=== PATIENT | female | born 1985 | race Caucasian/White ===

== ENCOUNTER 2016-08-18 15:12 | Emergency (ER) | payer MEDICAID, OTHER ==
[~2016-08-18] VITALS: Ht 157.5 cm; Wt 94.8 kg
[2016-08-18] MEDS ORDERED: HYDROcodone/APAP 7.5 MG/325 MG (LORTAB, LORCET PLUS) TABLET PO STA (16:03)
[2016-08-18] MEDS ORDERED: CYCL10TA9 PO (16:09)
[2016-08-18] MEDS ORDERED: PRD20T PO (16:09)
[2016-08-18] MEDS ORDERED: HYDR-3816 PO ×2 (16:09→16:16)
--- NOTE | 2016-08-18 16:10 | ED Back Pain ---
General Chief Complaint: Back Problems Stated Complaint: BACK PAIN Nursing Triage Note: c/o low back pain. Denies acute trauma. Onset 1 week ago. Nursing Sepsis Screen: No Definite Risk Source of Information: Patient Exam Limitations: No Limitations History of Present Illness Time Seen by Provider: 15:55 Initial Comments Here with low back pain that has been going on for the last week. States that it is in the left side now and radiates down the left leg. She did haven't previously in the right side radiating down the right leg. Denies any specific injury. Denies bowel or bladder incontinence. Denies numbness between the legs or weakness. Location: Lumbar Spine, Paraspinous Muscles Timing/Duration: 1 Week Severity: Moderate Pain/Injury Location: Back Radiation: Buttocks, Upper Legs Method of Injury: Unknown Modifying Factors: Worse With Movement Associated Symptoms: muscle spasms, No fever, No weakness, No numbness in legs/ feet, No tingling in legs/feet, No sensory/motor loss, lower back pain, No loss of bladder control, No loss of bowel control Allergies and Home Medications Allergies Coded Allergies: Penicillins (Verified Allergy, Unknown, 08/18/16) tramadol (Verified Allergy, Unknown, 08/18/16) Constitutional: see HPI Respiratory: no symptoms reported Cardiovascular: no symptoms reported Gastrointestinal: no symptoms reported Genitourinary: no symptoms reported Musculoskeletal: see HPI, back pain, muscle pain Skin: no symptoms reported Psychiatric/Neurological: No Symptoms Reported Past Spvtjrl-Xjxebw-Thqznh Hx Patient Social History Alcohol Use: Denies Use Recreational Drug Use: No Smoking Status: Current Everyday Smoker Recent Foreign Travel: No Contact w/Someone Who Travel: No Recent Infectious Disease Expo: No Recent Hopitalizations: No Surgeries HX Surgeries: No Respiratory Hx Respiratory Disorders: No Cardiovascular Hx Cardiac Disorders: No Neurological Hx Neurological Disorders: No Reproductive System : No Hx Reproductive Disorders: No HIV/AIDS: No Genitourinary Hx Genitourinary Disorders: No Gastrointestinal Hx Gastrointestinal Disorders: No Musculoskeletal Hx Musculoskeletal Disorders: No Endocrine Hx Endocrine Disorders: No HEENT HX ENT Disorders: No Cancer Hx Cancer: No Psychosocial Hx Psychiatric Problems: No Integumentary HX Skin/Integumentary Disorder: No Blood Transfusions Hx Blood Disorders: No Reviewed Nursing Assessment Reviewed/Agree w Nursing PMH: Yes Family Medical History Significant Family History: No Pertinent Family Hx Physical Exam Vital Signs Vital Sign - Last 12Hours 4/10/17 15:43 Temp 98.6 Pulse 70 Resp 16 B/P (MAP) 124/87 Pulse Ox 98 O2 Delivery Room Air Capillary Refill : Less Than 3 Seconds General Appearance: No Apparent Distress, WD/WN Cardiovascular: Regular Rate, Rhythm, No Murmur Respiratory: Lungs Clear, Normal Breath Sounds Gastrointestinal: Non Tender, Soft Back: Muscle Spasm (mild left low back), No Vertebral Tenderness, Other (pain with straight leg raise bilateral) Extremity: Non Tender, No Calf Tenderness Neurologic/Psychiatric: Alert, Oriented x3, No Motor/Sensory Deficits Skin: Normal Color, Warm/Dry Progress/Results/Core Measures Results/Orders Vital Signs/I&O Vital Sign - Last 12Hours 08/18/16 15:43 Temp 98.6 Pulse 70 Resp 16 B/P (MAP) 124/87 Pulse Ox 98 O2 Delivery Room Air Blood Pressure Mean: 99 Progress Note : Progress Note Seen and evaluated. Hydrocodone 7.5 mg one tab by mouth. I did discuss with the patient about stepwise evaluation. She has no signs of significant back injury or spinal cord concerns at this time. Likely sciatica. Discharge home with return precautions. Patient verbalize understanding of instructions and agreement with plan. Departure Impression Impression: Primary Impression: Lumbar radiculopathy Disposition: 01 HOME, SELF-CARE Condition: Stable Departure-Patient Inst. Decision time for Depature: 16:08 Referrals: NO,LOCAL PHYSICIAN (PCP/Family) Primary Care Physician Patient Instructions: Radiculopathy (DC), Low Back Pain (DC) Add. Discharge Instructions: All discharge instructions reviewed with patient and/or family. Voiced understanding. Take medications as directed. Follow-up with your doctor this week for recheck and further evaluation. We will all hold on imaging at this point. Return if you have weakness, numbness between your legs, problems going to the bathroom or walking or other concerns as needed. You may take ibuprofen 800 mg every 8 hours as needed for pain. You may take Tylenol 1000 mg every 8 hours as needed for pain if you are not taking a hydrocodone-containing compound as both have acetaminophen (Tylenol) in it. Scripts Prednisone (Prednisone) 20 Mg Tab 40 MG PO DAILY, #14 TAB 0 Refills Prov: BEKAH GA MD 08/18/16 Hydrocodone/Acetaminophen (Hydrocodon-Acetaminoph 7.5-325) 1 Each Tablet 1 EACH PO Q6H, #14 TAB 0 Refills Prov: BEKAH GA MD 08/18/16 Cyclobenzaprine HCl (Cyclobenzaprine HCl) 10 Mg Tablet 10 MG PO Q8H Y for SPASMS, #15 TAB 0 Refills Prov: BEKAH GA MD 08/18/16 BEKAH GA MD Aug 18, 2016 16:10
[2016-08-18 16:20] VITALS: BP 122/80
== END 2016-08-18 16:20 | disposition home or self-care (01) ==
LOC: ER 15:15
DX: M54.16 Radiculopathy, lumbar region (principal); F17.210 Nicotine dependence, cigarettes, uncomplicated
CPT/HCPCS: 99281

== ENCOUNTER 2018-05-13 20:26 | Inpatient (IN) | payer MEDICAID | END 2018-05-15 13:15 | disposition home or self-care (01) | LOC: WSo 20:26 → LDRP 20:27 → WSo 20:39 → LDRP 20:39 ==

== ENCOUNTER 2018-06-18 14:51 | Emergency (ER) | payer MEDICAID ==
[~2018-06-18] VITALS: Ht 154.9 cm; Wt 81.2 kg
[~2018-06-18 14:51] MED LIST: CYCL10TA9 PO; HYDR-34 PO; PRD20T PO
[2018-06-18] MEDS ORDERED: fentaNYL INJECTION 100 MCG/2 ML AMP IVP ONE (16:00)
[2018-06-18 16:33] LABS: BASOPHILS % (AUTO) 0 % (0-10); EOSINOPHILS # (AUTO) 0.1 10^3/uL (0.0-0.3); EOSINOPHILS % (AUTO) 1 % (0-10); HEMATOCRIT 41 % (35-52); HEMOGLOBIN 13.5 G/DL (11.5-16.0); LYMPHOCYTES # (AUTO) 3.2 X 10^3 (1.0-4.0); LYMPHOCYTES % (AUTO) 34 % (12-44); MEAN CORPUSCULAR HEMOGLOBIN 30 PG (25-34); MEAN CORPUSCULAR HGB CONC 33 G/DL (32-36); MEAN CORPUSCULAR VOLUME 91 FL (80-99); MEAN PLATELET VOLUME 12.2 FL (7.4-10.4); MONOCYTES # (AUTO) 0.7 X 10^3 (0.0-1.0); MONOCYTES % (AUTO) 8 % (0-12); NEUTROPHILS # (AUTO) 5.3 X 10^3 (1.8-7.8); NEUTROPHILS % (AUTO) 57 % (42-75); PLATELET COUNT 189 10^3/uL (130-400); WHITE BLOOD COUNT 9.4 10^3/uL (4.3-11.0)
[2018-06-18 17:00] LABS: ALANINE AMINOTRANSFERASE 19 U/L (0-55); ALBUMIN 4.1 GM/DL (3.2-4.5); ALKALINE PHOSPHATASE 87 U/L (40-136); BILIRUBIN,TOTAL 0.3 MG/DL (0.1-1.0); BUN/CREATININE RATIO 13; CALCIUM 9.2 MG/DL (8.5-10.1); CARBON DIOXIDE 21 MMOL/L (21-32); CHLORIDE 109 MMOL/L (98-107); CREATININE SERUM 0.72 MG/DL (0.60-1.30); GFR ESTIMATED > 60; GLUCOSE 83 MG/DL (70-105); SODIUM 140 MMOL/L (135-145); TOTAL PROTEIN 7.1 GM/DL (6.4-8.2)
--- NOTE | 2018-06-18 17:26 | ED EENT ---
History of Present Illness General Chief Complaint: Dental Problems/Pain Stated Complaint: TOOTH ABSCESS Nursing Triage Note: Ambulatory to triage. Pt c/o R sided lower dental pain that began Thursday. Pt reports trying to get into [facility] dental and was not able to get an appt. Pt reports tooth is broken and "abscess broke open last night.' Pt is visibly swollen and pt reports R sided facial pain. Source: patient Exam Limitations: no limitations History of Present Illness Date Seen by Provider: Jun 18, 2018 Time Seen by Provider: 15:54 Initial Comments 32-year-old female who presents to the emergency room with complaints of right- sided lower dental pain that started on Thursday. She reports trying to go to [facility] but was not able to get an appointment. She reports that the abscess broke open in the middle of the night and was draining. But reports that this morning she woke up with right-sided lower facial swelling and pain. Timing/Duration: this morning Location: dental Associated Symptoms: facial pain/swelling, tooth pain Allergies and Home Medications Allergies Coded Allergies: Penicillins (Verified Allergy, Unknown, 08/18/16) tramadol (Verified Allergy, Unknown, 08/18/16) Home Medications No Active Prescriptions or Reported Meds Past Zpwnqhv-Axyxvc-Rzoqsd Hx Patient Social History Alcohol Use: Denies Use Recreational Drug Use: No Smoking Status: Current Everyday Smoker Type Used: Cigarettes Recent Foreign Travel: No Contact w/Someone Who Travel: No Recent Infectious Disease Expo: No Recent Hopitalizations: No Physical Abuse: No Sexual Abuse: No Immunizations Up To Date PED Vaccines UTD: Yes Date of Influenza Vaccine: Mar 10, 2018 Past Medical History Surgeries: No Respiratory: No Cardiac: No Neurological: No Reproductive Disorders: No HIV/AIDS: No Genitourinary: No Gastrointestinal: No Musculoskeletal: No Endocrine: No HEENT: No Cancer: No Psychosocial: No Integumentary: No Blood Disorders: No Adverse Reaction/Blood Tranf: No Family Medical History Patient reports no known family medical history. No Pertinent Family Hx Physical Exam Vital Signs Vital Signs - First Documented 06/18/18 15:39 Temp 97.4 Pulse 79 Resp 15 B/P (MAP) 118/77 (91) Pulse Ox 97 O2 Delivery Room Air Height, Weight, BMI Height: 5'1.00" Weight: 179lbs. 0.0oz. [id number]; 39.5 BMI Method:Stated Progress/Results/Core Measures Results/Orders Lab Results Laboratory Tests Test 06/18/18 16:20 Range/Units White Blood Count 9.4 4.3-11.0 10^3/uL Red Blood Count 4.49 4.35-5.85 10^6/uL Hemoglobin 13.5 11.5-16.0 G/DL Hematocrit 41 35-52 % Mean Corpuscular Volume 91 80-99 FL Mean Corpuscular Hemoglobin 30 25-34 PG Mean Corpuscular Hemoglobin Concent 33 32-36 G/DL Red Cell Distribution Width 14.0 10.0-14.5 % Platelet Count 189 130-400 10^3/uL Mean Platelet Volume 12.2 H 7.4-10.4 FL Neutrophils (%) (Auto) 57 42-75 % Lymphocytes (%) (Auto) 34 12-44 % Monocytes (%) (Auto) 8 0-12 % Eosinophils (%) (Auto) 1 0-10 % Basophils (%) (Auto) 0 0-10 % Neutrophils # (Auto) 5.3 1.8-7.8 X 10^3 Lymphocytes # (Auto) 3.2 1.0-4.0 X 10^3 Monocytes # (Auto) 0.7 0.0-1.0 X 10^3 Eosinophils # (Auto) 0.1 0.0-0.3 10^3/uL Basophils # (Auto) 0.0 0.0-0.1 10^3/uL Sodium Level 140 135-145 MMOL/L Potassium Level 4.0 3.6-5.0 MMOL/L Chloride Level 109 H 98-107 MMOL/L Carbon Dioxide Level 21 21-32 MMOL/L Anion Gap 10 5-14 MMOL/L Blood Urea Nitrogen 9 7-18 MG/DL Creatinine 0.72 0.60-1.30 MG/DL Estimat Glomerular Filtration Rate > 60 BUN/Creatinine Ratio 13 Glucose Level 83 70-105 MG/DL Calcium Level 9.2 8.5-10.1 MG/DL Corrected Calcium 9.1 8.5-10.1 MG/DL Total Bilirubin 0.3 0.1-1.0 MG/DL Aspartate Amino Transf (AST/SGOT) 19 5-34 U/L Alanine Aminotransferase (ALT/SGPT) 19 0-55 U/L Alkaline Phosphatase 87 40-136 U/L Total Protein 7.1 6.4-8.2 GM/DL Albumin 4.1 3.2-4.5 GM/DL Serum Test, Qualitative NEGATIVE NEGATIVE My Orders Orders - EMY VEE Comprehensive Metabolic Panel (06/18/18 15:53) Saline Lock/Iv-Start (06/18/18 15:53) Cbc With Automated Diff (06/18/18 15:53) Ct Maxillofacial W (06/18/18 15:53) Fentanyl Injection (Sublimaze Injection (06/18/18 16:00) Hcg,Qualitative Serum (06/18/18 16:29) Iohexol Injection (Omnipaque 350 Mg/Ml 1 (06/18/18 17:45) Contrast Received (Contrast Received) (06/18/18 17:45) Sodium Chloride Flush (Catheter Flush Sy (06/18/18 17:45) Ns (Ivpb) (Sodium Chloride 0.9% Ivpb Bag (06/18/18 17:45) Clindamycin Capsule (Cleocin Capsule) (06/18/18 18:30) Hydrocodone/Apap 7.5/325 Tab (Lortab 7. (06/18/18 18:30) Medications Given in ED Current Medications Medications Dose Ordered Sig/Speedy Route Start Time Stop Time Status Last Admin Dose Admin Fentanyl Citrate 50 mcg ONCE ONCE IVP 06/18/18 16:00 06/18/18 16:01 DC 06/18/18 16:28 50 MCG Iohexol 100 ml ONCE ONCE IV 06/18/18 17:45 06/18/18 17:46 DC 06/18/18 17:38 100 ML Sodium Chloride 10 ml NEEDED PRN IV 06/18/18 17:45 06/18/18 17:38 10 ML Sodium Chloride 100 ml ONCE ONCE IV 06/18/18 17:45 06/18/18 17:46 DC 06/18/18 17:38 80 ML Vital Signs/I&O 06/18/18 15:39 Temp 97.4 Pulse 79 Resp 15 B/P (MAP) 118/77 (91) Pulse Ox 97 O2 Delivery Room Air Blood Pressure Mean: 91 Departure Impression Primary Impression: Dental abscess Disposition: 01 HOME, SELF-CARE Condition: Stable/Unchanged Departure-Patient Inst. Decision time for Depature: 18:19 Referrals: NO,LOCAL PHYSICIAN (PCP/Family) Primary Care Physician Patient Instructions: Tooth Abscess (DC) Add. Discharge Instructions: Take medications as directed. Ibuprofen and Tylenol as directed by the bottle for pain relief. Pain medication for pain unrelieved by Tylenol and ibuprofen. Follow-up with your primary care provider and your dentist within 1 for recheck. Return back to the emergency room for worsening symptoms, worsening swelling, fevers, or any other concerns as needed. All discharge instructions reviewed with patient and/or family. Voiced understanding. Scripts Clindamycin HCl (Clindamycin HCl) 300 Mg Capsule 300 MG PO Q6H for 7 Days, #28 CAP Prov: EMY VEE 06/18/18 Hydrocodone Bit/Acetaminophen (Hydrocodone/Acetaminophen 5/325mg Tablet) 1 Tab Tab 1-2 EACH PO Q6H PRN for PAIN-MODERATE MDD 10, #14 TAB Prov: EMY VEE 06/18/18 EMY VEE Jun 18, 2018 17:26
[2018-06-18] MEDS ORDERED: NS 100 ML (IVPB) BAG IV ONE (17:45)
[2018-06-18] MEDS ORDERED: CATHETER FLUSH 10 ML SYR IV PRN (17:45)
[2018-06-18] MEDS ORDERED: IOHEXOL 350 MG/ML 100 ML (OMNIPAQUE 350) VIAL IV ONE (17:45)
[2018-06-18] MEDS ORDERED: RECEIVED CONTRAST (Hold Metformin) IV SCH (17:45)
--- NOTE | 2018-06-18 17:51 | Diagnostic Imaging Report ---
PROCEDURE: CT maxillofacial with contrast. TECHNIQUE: After intravenous administration of contrast, axial images were obtained through the face and reformatted into coronal and sagittal planes. INDICATION: Left-sided dental pain and swelling. COMPARISON: No comparison is available. FINDINGS: There is diffuse abnormal induration demonstrated within the subcutaneous fat about the mandible bilaterally appearing more extensive on the right. There are numerous bilateral maxillary and mandibular dental caries, which suggest an odontogenic source of this apparent soft tissue infection. There are periapical lucencies about the right second and third mandibular molars, which may reflect a periapical abscess. Each of these teeth demonstrate large dental caries. There are large dental caries within the right maxillary second premolar. On the left, there are dental caries demonstrated within the left second and third maxillary molars, the first and third mandibular molars, and the left second premolar. There are no findings of a current fluid collection or drainable abscess. There is right greater than left submandibular lymphadenopathy which is on a presumed reactive basis. There are also some mildly prominent right-sided level II cervical lymph nodes. The aerodigestive tract demonstrates appropriate symmetry. There is no abnormal process evident within the prevertebral or retropharyngeal space. There is no abnormal thickening of the epiglottis. The vocal folds appear symmetric. The parotid, submandibular, and thyroid glands appear unremarkable where visualized. The paranasal sinuses appear clear. The orbital contents are unremarkable. The mastoids and middle ears appear clear. The intracranial contents demonstrate no abnormal enhancement. IMPRESSION: 1. Extensive facial subcutaneous induration and soft tissue edema with skin thickening suggesting cellulitis. This is greater on the right. There is no definable drainable abscess or fluid collection. The source of this soft tissue infection is believed to be odontogenic on basis given the presence of multiple bilateral dental caries as well as periapical lucencies about the patient's right maxillary molars. 2. Right greater than left lymphadenopathy is on a presumed reactive basis. 3. No significant mass effect or narrowing of the airway demonstrated. Dictated by: Dictated on workstation # [id number]
[2018-06-18] MEDS ORDERED: ACHD5005 PO (18:21)
[2018-06-18] MEDS ORDERED: CLIN300C11 PO (18:21)
[2018-06-18] MEDS ORDERED: HYDROcodone/APAP 7.5 MG/325 MG (LORTAB, LORCET PLUS) TABLET PO ONE (18:30)
[2018-06-18] MEDS ORDERED: CLINDAMYCIN 150 MG (CLEOCIN) CAP PO ONE (18:30)
[2018-06-18 18:39] VITALS: BP 120/84
== END 2018-06-18 18:43 | disposition home or self-care (01) ==
LOC: EDUNIT# 14:51 → ER 14:51
DX: K04.7 Periapical abscess without sinus (principal); F17.210 Nicotine dependence, cigarettes, uncomplicated; Z88.0 Allergy status to penicillin; Z88.5 Allergy status to narcotic agent
CPT/HCPCS: 36415; 70487; 80053; 84703; 85025

== ENCOUNTER → 2020-03-14 | Outpatient (CLI) | payer MEDICAID ==
[~2020-03-14] MED LIST changes: +ACHD5005 PO; +CLIN300C11 PO
== END ==
LOC: LABNPT 06:58
PROVIDERS: ATTEND Obstetrics & Gynecology
DX: Z53.9 Procedure and treatment not carried out, unspecified reason (principal)

== ENCOUNTER → 2021-12-16 | Outpatient (CLI) | payer MEDICAID ==
[~2021-12-16] MED LIST changes: +CLIN-144 PO; -CLIN300C11 PO; +CYCL10TA25 PO; -CYCL10TA9 PO
--- NOTE | 2021-12-16 09:29 | Diagnostic Imaging Report ---
PROCEDURE: US Gallbladder. TECHNIQUE: Multiple real-time grayscale images were obtained over the right upper quadrant in various projections. INDICATION: Right upper quadrant pain with nausea and vomiting. The liver is normal size 14 cm. Portal vein is patent and shows normal direction of flow. There is a circumscribed echogenic lesion left lobe of the liver measuring approximate 14 mm x 12 mm, suggestive of a liver hemangioma. The gallbladder is without stones or sludge. There is no wall thickening or biliary ductal dilatation. Pancreas unremarkable. Aorta is nonaneurysmal. IVC is patent. Right kidney is without calculi or hydronephrosis. There is no ascites. IMPRESSION: 1. No evidence of cholelithiasis or acute cholecystitis. 2. 14 mm hyperechoic lesion in the left lobe of liver, most suggestive of a hemangioma. Dictated by: Dictated on workstation # [id number]
== END ==
LOC: RAD 08:30
PROVIDERS: ATTEND Surgery
DX: K76.9 Liver disease, unspecified (principal)
CPT/HCPCS: 76705

== ENCOUNTER → 2021-12-23 | Outpatient (CLI) | payer MEDICAID ==
[~2021-12-23] MED LIST changes: +CATHETER FLUSH 10 ML SYR IVP PRN
--- NOTE | 2021-12-23 12:36 | Diagnostic Imaging Report ---
INDICATION: Right upper quadrant abdominal pain. Nausea and vomiting COMPARISON: None Tc-99m Choletec 4.7 mCi IV followed by 8 ounces of oral Ensure FINDINGS: The upper abdomen was imaged for 60 minutes with the gamma camera. There is normal appearance of activity in the liver. There is activity in the common duct and gallbladder by 60 minutes. After 60 minutes, the patient received 8 ounces of oral Ensure. After 60 minutes with additional imaging, the gallbladder ejection fraction was calculated to be 8% which is normal. IMPRESSION: 1. Cystic and common bile duct are patent, but gallbladder ejection fraction is low at 8%. Findings can be seen with underlying gallbladder dyskinesia or acalculus cholecystitis Dictated by: Dictated on workstation # [id number]
== END ==
LOC: CARD 10:00
PROVIDERS: ATTEND Surgery
DX: R10.11 Right upper quadrant pain (principal); R11.2 Nausea with vomiting, unspecified
CPT/HCPCS: 78227; A9537

== ENCOUNTER 2021-12-26 19:43 | Emergency (ER) | payer MEDICAID ==
[~2021-12-26 19:43] MED LIST changes: -CATHETER FLUSH 10 ML SYR IVP PRN
[2021-12-26 19:52] VITALS: BP 118/93
--- NOTE | 2021-12-26 20:09 | ED Abdominal Pain ---
General Chief Complaint: Abdominal/GI Problems Stated Complaint: ABD PAIN/NAUSEA Nursing Triage Note: pt reports she is scheduled for gallbladder removal a week from today. reports increased pain since 1600. denies n/v/d Source of Information: Patient Exam Limitations: No Limitations History of Present Illness Date Seen by Provider: Dec 26, 2021 Time Seen by Provider: 20:06 Initial Comments Patient is a 36-year-old female who presents ED with epigastric and right upper quad abdominal pain. She has been having pain to this area for the past 4 months worse over the past month and a half. Nausea worse after eating. No diarrhea. Patient with a history of biliary dyskinesia. She had a HIDA scan performed this month that showed a ejection fraction of 8%. She is not currently on pain medication. She is scheduled for elective cholecystectomy next by Dr. Ogden. Denies any vomiting, fever, chills, chest pain or shortness of breath. Pain started this morning that has increased throughout the day. No improvement with anti-inflammatories. Did eat this morning but denies eating this afternoon or evening. She is requesting something for pain. She also reports some urinary changes with difficulty urinating without hematuria. Not concern for Allergies and Home Medications Allergies Coded Allergies: Penicillins (Verified Allergy, Unknown, 08/18/16) tramadol (Verified Allergy, Unknown, 08/18/16) Patient Home Medication List Home Medication List Reviewed: Yes Clindamycin HCl (Clindamycin HCl) 300 Mg Capsule, 300 MG PO Q6H Prescribed by: EMY VEE on 06/18/181820 Hydrocodone Bit/Acetaminophen (Lortab 5 Mg Tablet) 1 Tab Tab, 1-2 EACH PO Q6H PRN for PAIN-MODERATE Prescribed by: EMY VEE on 06/18/181820 Hydrocodone/Acetaminophen (Hydrocodone-Acetamin 5-325 mg) 5 Mg-325 Mg Tablet, 1 TAB PO Q4H PRN for PAIN-MODERATE (5-7) Prescribed by: DONOVAN LUNA on 12/26/212106 Review of Systems Review of Systems Constitutional: No chills, No diaphoresis, No malaise, No weakness EENTM: No Double Vision, No Eye Pain, No Mouth Pain Respiratory: Denies Cough, Denies Orthopnea Cardiovascular: Denies Chest Pain Gastrointestinal: Abdominal Pain; Denies Diarrhea; Nausea; Denies Vomiting Genitourinary: Denies Burning, Denies Discharge; Pain Musculoskeletal: No back pain, No joint pain Skin: No change in color, No change in hair/nails All Other Systems Reviewed Negative Unless Noted: Yes Past Xlhegwl-Zcaayl-Jyubtt Hx Patient Social History Tobacco Use?: Yes Tobacco type used: Cigarettes Smoking Status: Current Everyday Smoker Substance use?: No Alcohol Use?: No Pt feels they are or have been: No Immunizations Up To Date PED Vaccines UTD: Yes Influenza Vaccine Up-to-Date: No; Not Current First/Initial COVID19 Vaccinat: unknown date Second COVID19 Vaccination Jose: unknown date COVID19 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 No Pertinent Family Hx Physical Exam Vital Signs Vital Signs - First Documented 12/26/21 19:52 Pulse 87 Resp 18 B/P (MAP) 118/93 (101) Pulse Ox 100 Capillary Refill : Height/Weight/BMI Height: 5'1.00" Weight: 179lbs. 0.0oz. 81.305917jj; 39.5 BMI Method:Stated General Appearance: WD/WN, no apparent distress HEENT: PERRL/EOMI, normal ENT inspection, TMs normal, pharynx normal Neck: non-tender, full range of motion, supple, normal inspection Respiratory: chest non-tender, lungs clear, normal breath sounds, no respiratory distress, no accessory muscle use Cardiovascular: regular rate, rhythm, no edema, no gallop, no JVD Gastrointestinal: normal bowel sounds, soft, no organomegaly, tenderness (Epigastric and right upper quadrant tenderness. Normal bowel sounds throughout. 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 nml as tested, no motor/sensory deficits, alert, normal mood/affect, oriented x 3 Skin: normal color, warm/dry Progress/Results/Core Measures Results/Orders Lab Results Laboratory Tests Test 12/26/21 20:17 Range/Units White Blood Count 7.2 4.3-11.0 10^3/uL Red Blood Count 4.51 3.80-5.11 10^6/uL Hemoglobin 13.3 11.5-16.0 g/dL Hematocrit 41 35-52 % Mean Corpuscular Volume 90 80-99 fL Mean Corpuscular Hemoglobin 30 25-34 pg Mean Corpuscular Hemoglobin Concent 33 32-36 g/dL Red Cell Distribution Width 13.3 10.0-14.5 % Platelet Count 269 130-400 10^3/uL Mean Platelet Volume 10.9 9.0-12.2 fL Immature Granulocyte % (Auto) 0 % Neutrophils (%) (Auto) 57 42-75 % Lymphocytes (%) (Auto) 34 12-44 % Monocytes (%) (Auto) 7 0-12 % Eosinophils (%) (Auto) 1 0-10 % Basophils (%) (Auto) 1 0-10 % Neutrophils # (Auto) 4.1 1.8-7.8 10^3/uL Lymphocytes # (Auto) 2.5 1.0-4.0 10^3/uL Monocytes # (Auto) 0.5 0.0-1.0 10^3/uL Eosinophils # (Auto) 0.1 0.0-0.3 10^3/uL Basophils # (Auto) 0.1 0.0-0.1 10^3/uL Immature Granulocyte # (Auto) 0.0 0.0-0.1 10^3/uL Sodium Level 142 135-145 MMOL/L Potassium Level 3.6 3.6-5.0 MMOL/L Chloride Level 108 H 98-107 MMOL/L Carbon Dioxide Level 21 21-32 MMOL/L Anion Gap 13 5-14 MMOL/L Blood Urea Nitrogen 9 7-18 MG/DL Creatinine 0.78 0.60-1.30 MG/DL Estimat Glomerular Filtration Rate 102 BUN/Creatinine Ratio 12 Glucose Level 76 70-105 MG/DL Calcium Level 9.7 8.5-10.1 MG/DL Corrected Calcium 9.4 8.5-10.1 MG/DL Total Bilirubin 0.5 0.1-1.0 MG/DL Aspartate Amino Transf (AST/SGOT) 17 5-34 U/L Alanine Aminotransferase (ALT/SGPT) 17 0-55 U/L Alkaline Phosphatase 74 40-136 U/L Total Protein 7.3 6.4-8.2 GM/DL Albumin 4.4 3.2-4.5 GM/DL Lipase 27 8-78 U/L My Orders Orders - MARIAN CASANOVA Cbc With Automated Diff (12/26/21 20:03) Comprehensive Metabolic Panel (12/26/21 20:03) Lipase (12/26/21 20:03) Ondansetron Injection (Zofran Injectio (12/26/21 20:15) Morphine Injection (Morphine Injection (12/26/21 20:15) Medications Given in ED Vital Signs/I&O 12/26/21 19:52 Pulse 87 Resp 18 B/P (MAP) 118/93 (101) Pulse Ox 100 Blood Pressure Mean: 101 Departure Communication (PCP) Patient with normal white blood count, liver enzymes. Patient states 3 days ago had a abnormal HIDA scan. She does have epigastric right upper quadrant. No chest pain or shortness of breath. She was given dose of pain medication with improvement of pain. She states she has been eating spicy foods such as [place] this week. Discussed with patient spicy foods fatty foods may exacerbate her pain. Discussed limiting these types of foods. She was tolerating p.o. fluids. She did report urinary symptoms over the past month. She believes this is secondary to her pain and does not feel like a urinary tract infection. Attem pted to obtain a urinalysis but she did not provide one. She does not want to wait and was eager to leave. No evidence of surgical abdomen. No dark tarry stool bloody stool, vomiting. Recommend continue follow-up with Dr. Ogden for your surgery of cholecystectomy next week. Return precautions were discussed with patient Impression Primary Impression: Biliary dyskinesia Disposition: 01 HOME, SELF-CARE Condition: Stable Departure-Patient Inst. Decision time for Depature: 21:06 Referrals: HOLLIE CARLTON MD (PCP/Family) Primary Care Physician Patient Instructions: Gallbladder Diet Scripts Hydrocodone/Acetaminophen (Hydrocodone-Acetamin 5-325 mg) 5 Mg-325 Mg Tablet 1 TAB PO Q4H PRN for PAIN-MODERATE (5-7), #6 TAB Prov: MARIAN CASANOVA 12/26/21 MARIAN CASANOVA Dec 26, 2021 20:08
[2021-12-26] MEDS ORDERED: ONDANSETRON 4 MG/2 ML (SDV) Z0FRAN IVP ONE (20:15)
[2021-12-26] MEDS ORDERED: morphine INJ 10 MG/ML 1ML (SYR OR VIAL) IVP ONE (20:15)
[2021-12-26 20:28] LABS: BASOPHILS # (AUTO) 0.1 10^3/uL (0.0-0.1); BASOPHILS % (AUTO) 1 % (0-10); EOSINOPHILS # (AUTO) 0.1 10^3/uL (0.0-0.3); EOSINOPHILS % (AUTO) 1 % (0-10); HEMATOCRIT 41 % (35-52); HEMOGLOBIN 13.3 g/dL (11.5-16.0); LYMPHOCYTES # (AUTO) 2.5 10^3/uL (1.0-4.0); LYMPHOCYTES % (AUTO) 34 % (12-44); MEAN CORPUSCULAR HEMOGLOBIN 30 pg (25-34); MEAN CORPUSCULAR HGB CONC 33 g/dL (32-36); MEAN CORPUSCULAR VOLUME 90 fL (80-99); MEAN PLATELET VOLUME 10.9 fL (9.0-12.2); MONOCYTES # (AUTO) 0.5 10^3/uL (0.0-1.0); MONOCYTES % (AUTO) 7 % (0-12); NEUTROPHILS # (AUTO) 4.1 10^3/uL (1.8-7.8); NEUTROPHILS % (AUTO) 57 % (42-75); PLATELET COUNT 269 10^3/uL (130-400); WHITE BLOOD COUNT 7.2 10^3/uL (4.3-11.0)
[2021-12-26 20:54] LABS: ALBUMIN 4.4 GM/DL (3.2-4.5); BILIRUBIN,TOTAL 0.5 MG/DL (0.1-1.0); CALCIUM 9.7 MG/DL (8.5-10.1); CREATININE SERUM 0.78 MG/DL (0.60-1.30); POTASSIUM 3.6 MMOL/L (3.6-5.0); TOTAL PROTEIN 7.3 GM/DL (6.4-8.2)
[2021-12-26] MEDS ORDERED: ACHD5005 PO (21:07)
== END 2021-12-26 22:11 | disposition home or self-care (01) ==
LOC: EDUNIT# 19:43 → ER 19:45
DX: K82.8 Other specified diseases of gallbladder (principal); F17.210 Nicotine dependence, cigarettes, uncomplicated
CPT/HCPCS: 36415; 80053; 83690; 85025

== ENCOUNTER 2021-12-30 05:30 | Outpatient (CLI) | payer MEDICAID ==
[~2021-12-30] VITALS: Ht 157.5 cm; Wt 55.5 kg
== END 2021-12-30 11:30 | disposition home or self-care (01) ==
LOC: PREOP 05:30
PROVIDERS: ATTEND Surgery
DX: Z01.818 Encounter for other preprocedural examination (principal)

== ENCOUNTER 2022-01-02 09:42 | Day surgery (SDC) | payer MEDICAID ==
[2022-01-02] VITALS (13 sets, daily range): BP systolic 118–136; BP diastolic 63–98
[~2022-01-02] VITALS: Ht 157.5 cm; Wt 55.5 kg
[2022-01-02] MEDS ORDERED: LACTATED RINGERS 1,000 ML IV PRN (10:00)
[2022-01-02] MEDS ORDERED: CLINDAMYCIN 600 MG/50 ML IVPB 50 ML IV ONE (10:00)
[2022-01-02] MEDS ORDERED: HYDR-3817 PO (10:21)
--- NOTE | 2022-01-02 10:22 | Discharge Inst-Surgical ---
D/C Lap Instructions-KIDO Reconcile Patient Problems Problems Reviewed?: Yes New, Converted, or Re-Newed RX: RX on Chart Follow Up Appt in 2 weeks Activity as tolerated No driving for 24 hours No driving while on pain medications Incentive Spirometry use every 2 hours while awake Regular Diet Symptoms to Report: Fever over 101 degree F, Nausea/Vomiting Infection Signs and Symptoms to report: Increased redness, Foul odor of wound, Increased drainage Bathing instructions: May shower Operative Area Clean/Dry; Keep incision clean/dry If any problems/questions: Contact your physician or go to Emergency Room KIMBERLEY JAMES APRN Jan 02, 2022 10:22
--- NOTE | 2022-01-02 10:23 | Progress Note-Pre Operative ---
Pre-Operative Progress Note Date H&P Reviewed: Jan 02, 2022 Time H&P Reviewed: 10:20 History & Physical: H&P Reviewed, Patient Examed, No changes noted Pre-Operative Diagnosis: Biliary Dyskinesia KIMBERLEY JAMES APRN Jan 02, 2022 10:23
[2022-01-02] MEDS ORDERED: morphine INJ 10 MG/ML 1ML (SYR OR VIAL) IVP PRN (10:30)
[2022-01-02] MEDS ORDERED: HYDROcodone/APAP 5 MG/325 MG (LORTAB) TAB PO ONE (10:30)
[2022-01-02] MEDS ORDERED: ACETAMINOPHEN 325 MG TABLET PO PRN (10:30)
[2022-01-02] MEDS ORDERED: ONDANSETRON 4 MG/2 ML (SDV) Z0FRAN IVP PRN ×2 (10:30→13:15)
[2022-01-02] MEDS ORDERED: LIDOCAINE/EPI 2% 1:200,00 (XYLOCAINE) 20 ML VIAL ONE (11:22)
[2022-01-02] MEDS ORDERED: proPOfol 200 MG/20 ML (DIPRIVAN) VIAL IV ONE (11:24)
[2022-01-02] MEDS ORDERED: fentaNYL INJ 100 MCG/2 ML AMP ONE (11:24)
[2022-01-02] MEDS ORDERED: MIDAZOLAM 2 MG/2 ML (VERSED) VIAL ONE (11:24)
[2022-01-02] MEDS ORDERED: ONDANSETRON 4 MG/2 ML (SDV) Z0FRAN ONE (11:24)
[2022-01-02] MEDS ORDERED: LIDOCAINE PF 2% 5 ML (XYLOCAINE) VIAL ONE (11:24)
[2022-01-02] MEDS ORDERED: SEVOFLURANE (ULTANE) 15 ML INHAL SOLN ONE ×2 (11:24→12:43)
[2022-01-02] MEDS ORDERED: ROCURONIUM 50 MG/5 ML (ZEMURON) VIAL IV ONE (12:37)
[2022-01-02] MEDS ORDERED: KETOROLAC 30 MG/ML VIAL ONE (12:39)
[2022-01-02] MEDS ORDERED: SUGAMMADEX 500 MG/5 ML VIAL (BRIDION) IV ONE (12:40)
[2022-01-02] MEDS ORDERED: LIDOCAINE/EPI 2% 1:200,00 (XYLOCAINE) 20 ML VIAL INJ ONE (12:43)
--- NOTE | 2022-01-02 12:55 | Progress Note-Post Operative ---
Post-Operative Progess Note Surgeon (s)/Ripening Room Attendant (s) Surgeon KY MARTINEZ MD Ripening Room Attendant: lanette gupta [employer] Pre-Operative Diagnosis Biliary Dyskinesia Post-Operative Diagnosis same Procedure & Operative Findings Date of Procedure 01/02/22 Procedure Performed/Findings laparoscopic cholecystectomy Anesthesia Type get Estimated Blood Loss Estimated blood loss (mL): minimal Specimens/Packing Specimens Removed gallbladder KY MARTINEZ MD Jan 02, 2022 12:55
[2022-01-02] MEDS ORDERED: NALOXONE 0.4 MG/ML 1 ML (NARCAN) VIAL ONE (13:01)
[2022-01-02] MEDS ORDERED: MEPERIDINE (DEMEROL) INJ 50 MG/ML IVP ONE (13:15)
[2022-01-02] MEDS ORDERED: morphine INJ 10 MG/ML 1ML (SYR OR VIAL) IVP ONE (13:15)
[2022-01-02] MEDS ORDERED: morphine INJ 10 MG/ML 1ML (SYR OR VIAL) ONE (13:27)
--- NOTE | 2022-01-02 20:32 | OPERATIVE REPORT ---
DATE OF SERVICE: 01/02/2022 ATTENDING PRIMARY CARE PHYSICIAN: Dr. Karena Franz. PREOPERATIVE DIAGNOSIS: Symptomatic biliary dyskinesia. POSTOPERATIVE DIAGNOSIS: Symptomatic biliary dyskinesia. PROCEDURE: Laparoscopic cholecystectomy. SURGEON: Ky Martinez MD. ANESTHESIA: General endotracheal. ESTIMATED BLOOD LOSS: Minimal. FINDINGS: Distended gallbladder, no gallbladder wall thickening, no gallstones. DISPOSITION: The patient tolerated the procedure well. INDICATIONS: The patient is a 36-year-old female who has had a progressive ongoing issue with pain in the right upper abdominal quadrant with associated abdominal bloating, nausea as well as vomiting usually after meals. She underwent an ultrasound, which did not show any gallstones; however, she then underwent a HIDA scan, which did show a significantly low ejection fraction as well as reproduction of symptoms with nausea and right upper abdominal quadrant pain consistent with symptomatic biliary dyskinesia. DESCRIPTION OF PROCEDURE: The patient was brought to the operating room, laid supine on the table. After adequate IV pain and sedative medications and general endotracheal intubation, the abdomen was prepped and draped in standard surgical fashion. A 0.5% Marcaine with epinephrine was then used to anesthetize the overlying skin in the left upper abdominal quadrant and transverse skin incision made using 15 blade. An 0 silk suture was applied to the medial aspect incision for retraction and Veress needle inserted with a low opening pressure of 0 mmHg and the abdomen was then insufflated to 15 mmHg pressure. The Veress needle removed and a 5 mm XL trocar placed followed by a 5 mm 45-degree angle laparoscope visualizing the peritoneal cavity. A 4-quadrant abdominal exploration was performed. Stomach, small bowel, liver appeared normal. There was a slightly distended gallbladder, no gallbladder wall thickening. Under direct visualization, we then proceeded to place a supraumbilical 10 mm port after the skin and peritoneal lining were anesthetized using 0.5% Marcaine with epinephrine and a transverse skin incision made using a 15 blade. In a similar manner, a right upper abdominal quadrant 5 mm port was placed. The patient was then placed in reverse Trendelenburg position as well as plane right side up, left side down. The fundus of the gallbladder was then retracted anteriorly and superiorly. The hepatoduodenal ligament was then dissected bluntly as well as using electrocautery on the hook instrument as well as a [place] dissector. The entire critical view of safety was then identified including the triangle of Calot as well as the cystic duct and artery as only two structures going into the gallbladder as well as the cystic plate behind the proximal gallbladder. A timeout was then taken and the cystic duct and artery were then clipped proximally and distally and cut with EndoShears. The gallbladder was then dissected off the liver bed using electrocautery and hook instrument with visualization of good hemostasis as well as no leaking ducts of Luschka. The gallbladder was removed through the 10 mm port site using an EndoCatch bag. The gallbladder was removed through the 10 mm port site using an EndoCatch bag. The 10 mm port site fascia and peritoneum were then closed under direct visualization using a Darrel-Soren device and 0 Vicryl suture. The abdomen was desufflated and remaining ports removed. All skin incisions were closed using 4-0 Monocryl running subcuticular sutures. Wounds were then cleaned and covered with Dermabond. The patient tolerated the procedure well. We will start IV and oral pain medication as well as a clear liquid diet. When she is tolerating clears, has good pain control with oral pain medications, ambulating well, we will discharge her home where she will be instructed to do no heavy lifting or exertion for the next two weeks. Job ID: [id number] DocumentID: [id number] Dictated Date: 01/02/2022 13:09:54 Training Developer Date: 01/02/2022 20:31:27 Dictated By: KY MARTINEZ MD
--- NOTE | 2022-01-03 07:54 | Anesthesia-General Post-Op ---
General Patient Condition Mental Status/LOC: Same as Preop Cardiovascular: Satisfactory Nausea/Vomiting: Absent Respiratory: Satisfactory Pain: Controlled Complications: Absent Post Op Complications Complications None Follow Up Care/Instructions Patient Instructions None needed. Anesthesia/Patient Condition Patient Condition Patient is doing well, no complaints, stable vital signs, no apparent adverse anesthesia problems. No complications reported per nursing. D/C home per [facility] [place] Criteria: Yes ADA MAGANA CRNA Jan 03, 2022 07:54
== END 2022-01-02 17:00 | disposition home or self-care (01) ==
LOC: SDC 09:42
PROVIDERS: ATTEND Surgery
DX: K82.8 Other specified diseases of gallbladder (principal); K81.1 Chronic cholecystitis; F17.210 Nicotine dependence, cigarettes, uncomplicated; Z88.0 Allergy status to penicillin; Z88.5 Allergy status to narcotic agent
CPT/HCPCS: 84703; 87081; 88304; 94664

== ENCOUNTER 2022-12-18 19:20 | Emergency (ER) | payer MEDICAID ==
[~2022-12-18 19:20] MED LIST changes: +HYDR-3817 PO
--- NOTE | 2022-12-18 19:39 | ED Abdominal Pain ---
General Chief Complaint: Abdominal/GI Problems Stated Complaint: ABD PAIN Source of Information: Patient Exam Limitations: No Limitations (SHANNAN GAONA APRN) History of Present Illness Date Seen by Provider: Dec 18, 2022 Time Seen by Provider: 19:24 Initial Comments 37-year-old female presents to the ER with complaint of right lower quadrant abdominal pain for the last 4 days. She reports she has been feeling feverish and having chills. Reports nausea, no vomiting. Reports chronic diarrhea since having her gallbladder removed, denies any change in this. Last bowel movement was yesterday. Denies vaginal bleeding/discharge, denies dysuria. Reports that urinating actually improves her abdominal pain. Abdominal surgeries include gallbladder removal and tubal ligation. (SHANNAN GAONA APRN) Allergies and Home Medications Allergies Coded Allergies: tramadol (Verified Adverse Reaction, Mild, SHAKEY AND SICK TO STOMACH, 01/02/22) SHAKEY AND SICK TO STOMACH Penicillins (Verified Adverse Reaction, Unknown, IV PCN MAKES PATIENT SICK, PILL FORM IS TOLERABLE, 01/02/22) IV PCN MAKES PATIENT SICK, PILL FORM IS TOLERABLE Patient Home Medication List Home Medication List Reviewed: Yes (SHANNAN GAONA APRN) Hydrocodone/Acetaminophen (Hydrocodone-Acetamin 7.5-325) 7.5 Mg-325 Mg Tablet, 1 EACH PO Q4H PRN for PAIN-BREAKTHROUGH Prescribed by: KIMBERLEY JAMES on 01/02/22 1021 Sulfamethoxazole/Trimethoprim (Bactrim Ds Tablet) 1 Each Tablet, 1 EACH PO BID Prescribed by: Shannan Jefferson on 12/18/222122 Review of Systems Review of Systems Constitutional: see HPI (SHANNAN GAONA APRN) Past Fimucun-Htqqtn-Sumbgw Hx Immunizations Up To Date Tetanus Booster (TDap): Unknown PED Vaccines UTD: Yes First/Initial COVID19 Vaccinat: unknown date Second COVID19 Vaccination Jose: unknown date (SHANNAN GAONA APRN) Seasonal Allergies Seasonal Allergies: Yes (SHANNAN GAONA APRN) Past Medical History Surgeries: Yes Tubal Ligation Respiratory: No Currently Using CPAP: No Currently Using BIPAP: No Cardiac: No Neurological: No Reproductive Disorders: No HIV/AIDS: No Genitourinary: No Gastrointestinal: No Musculoskeletal: No Endocrine: No HEENT: No Cancer: No Psychosocial: No Integumentary: No Blood Disorders: No Adverse Reaction/Blood Tranf: No (SHANNAN GAONA APRN) Family Medical History Patient reports no known family medical history. No Pertinent Family Hx (SHANNAN GAONA APRN) Physical Exam Vital Signs Vital Signs - First Documented 12/18/22 19:30 Temp 37.0 Pulse 109 Resp 16 B/P (MAP) 124/84 (97) Pulse Ox 99 O2 Delivery Room Air ([facility]) Vital Signs Capillary Refill : (SHANNAN GAONA APRN) Height/Weight/BMI Height: 5'1.00" Weight: 179lbs. 0.0oz. 81.885584gd; 22.37 BMI Method:Stated General Appearance: WD/WN, no apparent distress Neck: supple, normal inspection Respiratory: lungs clear, normal breath sounds, no respiratory distress, no accessory muscle use Cardiovascular: regular rate, rhythm Gastrointestinal: normal bowel sounds, soft, guarding (Right lower quadrant); No rebound; tenderness (Right lower quadrant) Extremities: normal range of motion, normal inspection Neurologic/Psychiatric: alert, normal mood/affect Skin: normal color, warm/dry (SHANNAN GAONA APRN) Progress/Results/Core Measures Results/Orders Lab Results Laboratory Tests Test 12/18/22 19:33 12/18/22 20:52 Range/Units White Blood Count 7.5 4.3-11.0 10^3/uL Red Blood Count 4.15 3.80-5.11 10^6/uL Hemoglobin 12.6 11.5-16.0 g/dL Hematocrit 39 35-52 % Mean Corpuscular Volume 93 80-99 fL Mean Corpuscular Hemoglobin 30 25-34 pg Mean Corpuscular Hemoglobin Concent 33 32-36 g/dL Red Cell Distribution Width 13.1 10.0-14.5 % Platelet Count 176 130-400 10^3/uL Mean Platelet Volume 10.9 9.0-12.2 fL Immature Granulocyte % (Auto) 0 % Neutrophils (%) (Auto) 69 42-75 % Lymphocytes (%) (Auto) 20 12-44 % Monocytes (%) (Auto) 10 0-12 % Eosinophils (%) (Auto) 1 0-10 % Basophils (%) (Auto) 1 0-10 % Neutrophils # (Auto) 5.1 1.8-7.8 10^3/uL Lymphocytes # (Auto) 1.5 1.0-4.0 10^3/uL Monocytes # (Auto) 0.7 0.0-1.0 10^3/uL Eosinophils # (Auto) 0.0 0.0-0.3 10^3/uL Basophils # (Auto) 0.0 0.0-0.1 10^3/uL Immature Granulocyte # (Auto) 0.0 0.0-0.1 10^3/uL Sodium Level 139 135-145 MMOL/L Potassium Level 3.4 L 3.6-5.0 MMOL/L Chloride Level 106 98-107 MMOL/L Carbon Dioxide Level 23 21-32 MMOL/L Anion Gap 10 5-14 MMOL/L Blood Urea Nitrogen 5 L 7-18 MG/DL Creatinine 0.71 0.60-1.30 MG/DL Estimat Glomerular Filtration Rate 114 BUN/Creatinine Ratio 7 Glucose Level 121 H 70-105 MG/DL Calcium Level 9.4 8.5-10.1 MG/DL Corrected Calcium 9.5 8.5-10.1 MG/DL Total Bilirubin 0.3 0.1-1.0 MG/DL Aspartate Amino Transf (AST/SGOT) 17 5-34 U/L Alanine Aminotransferase (ALT/SGPT) 14 0-55 U/L Alkaline Phosphatase 72 40-136 U/L C-Reactive Protein High Sensitivity 6.18 H 0.00-0.50 MG/DL Total Protein 6.7 6.4-8.2 GM/DL Albumin 3.9 3.2-4.5 GM/DL Lipase 53 8-78 U/L Urine Color YELLOW Urine Clarity CLEAR Urine pH 7.5 5-9 Urine Specific [place] 1.015 L 1.016-1.022 Urine Protein NEGATIVE NEGATIVE Urine Glucose (UA) NEGATIVE NEGATIVE Urine Ketones NEGATIVE NEGATIVE Urine Nitrite NEGATIVE NEGATIVE Urine Bilirubin NEGATIVE NEGATIVE Urine Urobilinogen 0.2 < = 1.0 MG/DL Urine Leukocyte Esterase 1+ H NEGATIVE Urine RBC (Auto) NEGATIVE NEGATIVE Urine RBC NONE /HPF Urine WBC 5-10 H /HPF Urine Squamous Epithelial Cells 5-10 /HPF Urine Crystals NONE /LPF Urine Bacteria LARGE H /HPF Urine Casts NONE /LPF Urine Mucus SMALL H /LPF Urine Culture Indicated YES (ROSA GHOSH DO) Vital Signs/I&O 12/18/22 12/18/22 19:30 21:35 Temp 37.0 Pulse 109 92 Resp 16 B/P (MAP) 124/84 (97) 115/86 Pulse Ox 99 100 O2 Delivery Room Air (ROSA GHOSH DO) Progress Progress Note : Progress Note Patient seen and evaluated, resting in bed, no acute distress. Based on exam and symptoms, differential diagnosis includes but is not limited to appendicitis, urinary tract infection, ovarian cyst, other intra-abdominal pathologies. Workup initiated, CBC, CMP, lipase, CRP, UA, urine , CT abdomen pelvis. IV fluids, Zofran, fentanyl ordered. [address] reviewed. CBC grossly normal. CMP shows slightly decreased potassium 3.4, glucose 121, CRP slightly elevated 6.18, lipase normal. There is patchy cortical hypoenhancement within the right kidney which is concerning for pyelonephritis. Patient has been unable to provide urine sample for evaluation of infection. 2124 Urinalysis shows 1+ leukocytes, 5-10 WBCs, 5-10 squamous epithelial cells, large bacteria. Specimen possibly contaminated, but will go ahead and treat due to possible pyelonephritis noted on CT. Results discussed with patient. Discharge instructions and return precautions provided. (SHANNAN GAONA APRN) Diagnostic Imaging Diagonstic Imaging: CT Plain Films/CT/US/NM/MRI: abdomen, pelvis Comments [facility], [place] NAME: DARWIN LÓPEZ Alicia [facility] REC#: [id number] PT STATUS: REG ER : 1985 PHYSICIAN: SHANNAN GAONA APRN ADMIT DATE: 12/18/22/ER Draft Date of Exam:12/18/22 CT ABD/PELV W (APPENDICITIS) EXAMINATION: CT abdomen and pelvis with intravenous contrast. TECHNIQUE: Multiple contiguous axial images were obtained through the abdomen and pelvis after the uneventful administration of intravenous contrast. All CT scans use one or more of the following dose optimizing techniques: automated exposure control, MA and/or KvP adjustment based on patient size and exam type or iterative reconstruction. HISTORY: RLQ pain. COMPARISON: None available. FINDINGS: Lung bases: The lung bases are clear. Solid organs: The liver is normal without focal lesion. The gallbladder is surgically absent. There is no biliary ductal dilation. Pancreas is normal. Spleen is normal. Adrenal glands are normal. There are patchy areas of hypoenhancement seen within the right kidney. These involve the cortex. Bowel: The stomach and small bowel are normal without obstruction. The colon is normal. The appendix is normal. Peritoneum: There is no intraperitoneal free fluid or free air. No suspicious lymphadenopathy. Vasculature: Normal without aneurysm. Musculoskeletal: No suspicious osseous lesion or compression fracture. Pelvis: The uterus and adnexa are normal. The urinary bladder is normal. IMPRESSION: Patchy cortical hypoenhancement within the right kidney which is concerning for pyelonephritis. Recommend correlation with urinalysis and clinical history. Dictated on workstation # [id number] Dict: 12/18/222031 Trans: 12/18/222034 [facility] [id number] Interpreted by: KERRI MCLEAN DO Electronically signed by: (SHANNAN GAONA APRN) Departure Impression Primary Impression: Pyelonephritis Disposition: 01 HOME, SELF-CARE Condition: Stable Departure-Patient Inst. Decision time for Depature: 21:25 (SHANNAN GAONA APRN) Referrals: HOLLIE CARLTON MD (PCP/Family) Primary Care Physician Patient Instructions: Kidney Failure (DC) Add. Discharge Instructions: Complete full course of antibiotic as directed. Follow-up with your primary care provider. Return for worsening pain, recurrent vomiting, or any other new, concerning, or worsening symptoms. All discharge instructions reviewed with patient and/or family. Voiced understanding. Scripts Sulfamethoxazole/Trimethoprim (Bactrim Ds Tablet) 1 Each Tablet 1 EACH PO BID for 14 Days, #28 TAB 0 Refills Prov: SHANNAN GAONA APRN 12/18/22 ATTENDING PHYSICIAN NOTE: I WAS PHYSICALLY PRESENT ER PHYSICIAN, BUT I WAS NOT INVOLVED IN ANY DECISION MAKING OR ANY CARE OF THIS PATIENT AND I AM NOT COLLABORATING PHYSICIAN. (ROSA GHOSH DO) SHANNAN GAONA APRN Dec 18, 2022 19:39 ROSA GHOSH DO Dec 20, 2022 00:57
[2022-12-18 19:41] LABS: BASOPHILS % (AUTO) 1 % (0-10); EOSINOPHILS % (AUTO) 1 % (0-10); HEMATOCRIT 39 % (35-52); HEMOGLOBIN 12.6 g/dL (11.5-16.0); LYMPHOCYTES # (AUTO) 1.5 10^3/uL (1.0-4.0); LYMPHOCYTES % (AUTO) 20 % (12-44); MEAN CORPUSCULAR HEMOGLOBIN 30 pg (25-34); MEAN CORPUSCULAR HGB CONC 33 g/dL (32-36); MEAN CORPUSCULAR VOLUME 93 fL (80-99); MEAN PLATELET VOLUME 10.9 fL (9.0-12.2); MONOCYTES # (AUTO) 0.7 10^3/uL (0.0-1.0); MONOCYTES % (AUTO) 10 % (0-12); NEUTROPHILS # (AUTO) 5.1 10^3/uL (1.8-7.8); NEUTROPHILS % (AUTO) 69 % (42-75); PLATELET COUNT 176 10^3/uL (130-400); WHITE BLOOD COUNT 7.5 10^3/uL (4.3-11.0)
[2022-12-18] MEDS: ONDANSETRON 4 MG/2 ML (SDV) Z0FRAN IVP ONE (20:11)
[2022-12-18] MEDS: NS IV 1000 ML 1,000 ML IV SCH (20:11)
[2022-12-18] MEDS: fentaNYL INJECTION 100 MCG/2 ML VIAL IVP ONE (20:11)
[2022-12-18 20:18] LABS: ALBUMIN 3.9 GM/DL (3.2-4.5); BILIRUBIN,TOTAL 0.3 MG/DL (0.1-1.0); CALCIUM 9.4 MG/DL (8.5-10.1); CREATININE SERUM 0.71 MG/DL (0.60-1.30); POTASSIUM 3.4 MMOL/L (3.6-5.0); TOTAL PROTEIN 6.7 GM/DL (6.4-8.2)
[2022-12-18] MEDS: NS 100 ML (IVPB) BAG IV ONE (20:28)
[2022-12-18] MEDS: IOHEXOL 350 MG/ML 100 ML (OMNIPAQUE 350) VIAL IV ONE (20:28)
--- NOTE | 2022-12-18 20:35 | Diagnostic Imaging Report ---
EXAMINATION: CT abdomen and pelvis with intravenous contrast. TECHNIQUE: Multiple contiguous axial images were obtained through the abdomen and pelvis after the uneventful administration of intravenous contrast. All CT scans use one or more of the following dose optimizing techniques: automated exposure control, MA and/or KvP adjustment based on patient size and exam type or iterative reconstruction. HISTORY: RLQ pain. COMPARISON: None available. FINDINGS: Lung bases: The lung bases are clear. Solid organs: The liver is normal without focal lesion. The gallbladder is surgically absent. There is no biliary ductal dilation. Pancreas is normal. Spleen is normal. Adrenal glands are normal. There are patchy areas of hypoenhancement seen within the right kidney. These involve the cortex. Bowel: The stomach and small bowel are normal without obstruction. The colon is normal. The appendix is normal. Peritoneum: There is no intraperitoneal free fluid or free air. No suspicious lymphadenopathy. Vasculature: Normal without aneurysm. Musculoskeletal: No suspicious osseous lesion or compression fracture. Pelvis: The uterus and adnexa are normal. The urinary bladder is normal. IMPRESSION: Patchy cortical hypoenhancement within the right kidney which is concerning for pyelonephritis. Recommend correlation with urinalysis and clinical history. Dictated by: Dictated on workstation # [id number]
[2022-12-18 21:16] LABS: BILIRUBIN,URINE NEGATIVE (NEGATIVE); CLARITY,URINE CLEAR; COLOR,URINE YELLOW; GLUCOSE, URINE (UA) NEGATIVE (NEGATIVE); KETONES,URINE NEGATIVE (NEGATIVE); LEUKOCYTE ESTERASE ,URINE 1+ (NEGATIVE); NITRITE,URINE NEGATIVE (NEGATIVE); PH,URINE 7.5 (5-9); PROTEIN,URINE NEGATIVE (NEGATIVE)
[2022-12-18 21:17] LABS: BACTERIA,URINE LARGE /HPF
[2022-12-18] MEDS ORDERED: SULF1TAB38 PO (21:23)
[2022-12-18] MEDS: TRIM/SULFAMETH 160/800 (SEPTRA DS) TAB PO ONE (21:32)
[2022-12-18 21:35] VITALS: BP 115/86
== END 2022-12-18 21:35 | disposition home or self-care (01) ==
LOC: EDUNIT# 19:20 → ER 19:22
DX: N12 Tubulo-interstitial nephritis, not specified as acute or chronic (principal); Z90.49 Acquired absence of other specified parts of digestive tract; Z88.0 Allergy status to penicillin
CPT/HCPCS: 36415; 74177; 80053; 81000; 83690; 84703; 85025; 86141; 87077; 87088; 87186